=== PATIENT | male | born 1940 | race Two or more races ===

== ENCOUNTER 2016-10-25 07:20 | Outpatient (CLI) | payer MEDICARE, OTHER ==
[~2016-10-25 07:20] MED LIST: ASPI-605 PO; AZIT250T PO; CAPT25TA3 PO; CLOP75TA2 PO; EZET10TA13 PO; MONT10TA22 PO; PENT400T2 PO; SIMV20TA6 PO
[2016-10-25] MEDS ORDERED: REGADENOSON 0.4 MG/5 ML DISP.SYRIN IVP ONE (08:00)
[2016-10-25 10:04] LABS: BASOPHILS % (AUTO) 0.2 % (0.0-2.0); EOSINOPHILS # (AUTO) 0.1 /CMM (0.0-0.7); EOSINOPHILS % (AUTO) 1.4 % (0.0-6.0); HEMATOCRIT 35 % (39-51); HEMOGLOBIN 11.9 g/dL (13.5-17.5); LYMPHOCYTES # (AUTO) 1.8 /CMM (0.8-4.8); LYMPHOCYTES % (AUTO) 23.5 % (20.0-44.0); MEAN CORPUSCULAR HEMOGLOBIN 33 PG (26.0-33.0); MEAN CORPUSCULAR HGB CONC 34 g/dl (31.0-36.0); MEAN CORPUSCULAR VOLUME 98 fL (80-96); MONOCYTES # (AUTO) 0.4 /CMM (0.1-1.30); MONOCYTES % (AUTO) 5.1 % (2.0-12.0); NEUTROPHILS # (AUTO) 5.3 /CMM (1.8-8.9); NEUTROPHILS % (AUTO) 69.8 % (43.0-81.0); PLATELET COUNT (AUTO) 219 /CMM (150-450); RED BLOOD CELL COUNT(AUTO) 3.57 MIL/uL (4.5-6.0); WHITE BLOOD COUNT (AUTO) 7.6 K/uL (4.3-11.0)
[2016-10-25 10:28] LABS: ALBUMIN 3.8 g/dL (3.4-5.0); BILIRUBIN,TOTAL 0.4 mg/dL (0.2-1.0); CALCIUM, SERUM 9.1 mg/dL (8.5-10.1); MAGNESIUM 1.9 mg/dL (1.8-2.4); POTASSIUM 4.6 mmol/L (3.5-5.1); TOTAL PROTEIN, SERUM 8.8 g/dL (6.4-8.2)
[2016-10-25 10:36] LABS: THYROID STIMULATING HORMONE 2.704 uIU/mL (0.358-3.74)
== END 2016-10-25 23:59 | disposition home or self-care (01) ==
LOC: NM 07:20
PROVIDERS: ATTEND Internal Medicine Interventional Cardiology
DX: I25.10 Atherosclerotic heart disease of native coronary artery without angina pectoris (principal); I10 Essential (primary) hypertension; E78.5 Hyperlipidemia, unspecified
CPT/HCPCS: 36415; 78452; 80053; 80061; 82306; 83735; 84439; 84443; 85025; A9502; J2785

== ENCOUNTER 2017-05-15 15:37 | Outpatient (CLI) | payer MEDICARE, OTHER ==
[2017-05-15 16:34] LABS: ALANINE AMINOTRANSFERASE 29 U/L (12-78); ALBUMIN 3.9 g/dL (3.4-5.0); ALKALINE PHOSPHATASE 69 U/L (46-116); ASPARTATE AMINOTRANSFERASE 21 U/L (15-37); BILIRUBIN,TOTAL 0.4 mg/dL (0.2-1.0); CALCIUM, SERUM 9.2 mg/dL (8.5-10.1); CARBON DIOXIDE 32 mmol/L (21-32); CHLORIDE 103 mmol/L (98-107); GLUCOSE 127 mg/dL (74-106); POTASSIUM 4.5 mmol/L (3.5-5.1); SODIUM SERUM 141 mmol/L (136-145); TOTAL PROTEIN, SERUM 8.3 g/dL (6.4-8.2); UREA NITROGEN, BLOOD 22 mg/dL (7-18)
== END 2017-05-15 23:59 | disposition home or self-care (01) ==
LOC: LAB 15:37
PROVIDERS: ATTEND Internal Medicine Interventional Cardiology
DX: E78.5 Hyperlipidemia, unspecified (principal); R53.83 Other fatigue
CPT/HCPCS: 36415; 80053-TC; 83735-TC

== ENCOUNTER 2018-07-13 10:55 | Outpatient (CLI) | payer MEDICARE, OTHER ==
[~2018-07-13 10:55] MED LIST changes: +CLOP75TA15 PO; -CLOP75TA2 PO; +PENT400T12 PO; -PENT400T2 PO
== END 2018-07-13 23:59 | disposition home or self-care (01) ==
LOC: CT 10:55
PROVIDERS: ATTEND Internal Medicine Interventional Cardiology
DX: J47.9 Bronchiectasis, uncomplicated (principal); J98.4 Other disorders of lung; I51.7 Cardiomegaly; I25.10 Atherosclerotic heart disease of native coronary artery without angina pectoris; F17.200 Nicotine dependence, unspecified, uncomplicated; Z95.0 Presence of cardiac pacemaker
CPT/HCPCS: 71250-TC

== ENCOUNTER 2019-03-06 09:06 | Outpatient (CLI) | payer MEDICARE, OTHER ==
[~2019-03-06 09:06] MED LIST changes: -EZET10TA13 PO; +EZET10TA15 PO; -PENT400T12 PO; +PENT400T17 PO; +SIMV-46 PO; -SIMV20TA6 PO
== END 2019-03-06 23:59 | disposition home or self-care (01) ==
LOC: CT 09:06
PROVIDERS: ATTEND Internal Medicine Interventional Cardiology
DX: T50.991A Poisoning by other drugs, medicaments and biological substances, accidental (unintentional), initial encounter (principal); I11.9 Hypertensive heart disease without heart failure; M47.814 Spondylosis without myelopathy or radiculopathy, thoracic region; M19.011 Primary osteoarthritis, right shoulder; M19.012 Primary osteoarthritis, left shoulder; I70.0 Atherosclerosis of aorta; I25.10 Atherosclerotic heart disease of native coronary artery without angina pectoris; Y92.89 Other specified places as the place of occurrence of the external cause
CPT/HCPCS: 71250-TC

== ENCOUNTER 2019-10-26 22:57 | Inpatient (IN) | payer MEDICARE, OTHER ==
[~2019-10-26] VITALS: Ht 172.7 cm; Wt 81.2 kg
--- NOTE | 2019-10-26 23:18 | NUR ---
PATIENT CAME TO ER BED 10 C/O RAPID HEART RATE. PATIENT STATES THAT HE HAS BEEN HAVING FAST EHART RATE FOR THE PAST 3x DAYS WITH NO CHEST PAIN. AAOX4 NO SOB. BREATHING EVENLY AND UNLABORED ON ROOM AIR. CONNECTED TO UI DESIGNER.
[2019-10-26] MEDS ORDERED: AMIODARONE 150 MG/3 ML VIAL IV ONE ×3 (23:19→23:38)
--- NOTE | 2019-10-26 23:19 | NUR ---
BLOOD DRAWN AND SENT TO THE LAB.
[2019-10-26 23:24] LABS: BASOPHILS % (AUTO) 0.6 % (0.0-2.0); EOSINOPHILS % (AUTO) 1.5 % (0.0-6.0); HEMATOCRIT 33 % (39-51); HEMOGLOBIN 11.5 g/dL (13.5-17.5); LYMPHOCYTES % (AUTO) 29.8 % (20.0-44.0); MEAN CORPUSCULAR HGB CONC 34 g/dl (31.0-36.0); MEAN CORPUSCULAR VOLUME 101 fL (80-96); MONOCYTES # (AUTO) 0.6 /CMM (0.1-1.30); MONOCYTES % (AUTO) 8.4 % (2.0-12.0); NEUTROPHILS % (AUTO) 59.7 % (43.0-81.0); PLATELET COUNT (AUTO) 149 /CMM (150-450); RED BLOOD CELL COUNT(AUTO) 3.31 MIL/uL (4.5-6.0); WHITE BLOOD COUNT (AUTO) 6.6 K/uL (4.3-11.0)
[2019-10-26] MEDS ORDERED: DILTIAZEM HCL 25 MG IV IV ONE (23:30)
[2019-10-26 23:42] LABS: CALCIUM, SERUM 8.9 mg/dL (8.5-10.1); CREATININE 1.1 mg/dL (0.6-1.3); POTASSIUM 4.2 mmol/L (3.5-5.1)
[2019-10-26 23:48] LABS: ALBUMIN 3.8 g/dL (3.4-5.0); BILIRUBIN,DIRECT 0.1 mg/dL (0.0-0.2); BILIRUBIN,TOTAL 0.3 mg/dL (0.2-1.0)
[2019-10-27] VITALS (8 sets, daily range): BP systolic 107–151; BP diastolic 57–97
[2019-10-27] MEDS ORDERED: AMIODARONE 150 MG/3 ML VIAL IV ONE
[2019-10-27] MEDS ORDERED: FUROSEMIDE 20 MG/2 ML VIAL IV ONE (00:30)
[2019-10-27] MEDS ORDERED: RIVAROXABAN 10 MG TABLET PO SCH ×2 (00:30→17:00)
[2019-10-27] MEDS ORDERED: FUROSEMIDE 20 MG/2 ML VIAL ONE (00:33)
[2019-10-27] MEDS ORDERED: RIVAROXABAN 15 MG TABLET ONE (00:45)
--- NOTE | 2019-10-27 00:52 | NUR ---
XARELTO 15MG TABLET IS RECEIVED FROM FLOOR BECAUSE THERE IS NO XARELTO 15MG TABLET IS ABSENT FROM EMERGENCY DEPARTMENT. PATIENT IS MEDICATED WITH XARELTO 15MG PO PER MD'S ORDER.
--- NOTE | 2019-10-27 00:59 | NUR ---
REPORT GIVEN TO TAYLOR MUELLER FOR MOHIT.
[2019-10-27] MEDS ORDERED: HYDROCODONE/APAP 5/325MG 1 EACH TABLET PO PRN (01:00)
[2019-10-27] MEDS ORDERED: MAGNESIUM HYDROXIDE 30 ML UDC PO PRN (01:00)
[2019-10-27] MEDS ORDERED: MAG HYDROX/AL HYDROX/SIMETH 30 ML UDC PO PRN (01:00)
[2019-10-27] MEDS ORDERED: ONDANSETRON HCL/PF 4 MG/2 ML VIAL IVP PRN (01:00)
[2019-10-27] MEDS ORDERED: Z GUARD REMEDY 2 OZ OINT TP PRN (01:00)
[2019-10-27] MEDS ORDERED: RIVAROXABAN 15 MG TABLET PO ONE (01:00)
[2019-10-27] MEDS ORDERED: ACETAMINOPHEN 325 MG TABLET PO PRN (01:00)
[2019-10-27] MEDS ORDERED: ZOLPIDEM TARTRATE 5 MG TABLET PO PRN (01:00)
--- NOTE | 2019-10-27 01:06 | NUR ---
SHORT HAUL DRIVER NOTES RECEIVED PT FROM ER AWAKE A/OX4 GREEK/CZECH SPEAKING, VIA RFLAT LICK BUT ABLE TO AMBULATE ON RA SPO2@96%. TRANSFER FROM [facility] TO BED BY WALKING STABLE GAIT WITH NO ASSIST, V/S CHECKED WITH TEMP 97.5 BP 151/91 HR 142 RR 20, WITH R AC IV #20 WITH ONGOING AMIODARONE DRIP @ 1MG/MIN INFUSING WELL, HOOKED TO TELE MONITOR WITH CURRENT READING SINUS TACHY WITH AFIB RVR 140'S, HEAD TO TOE ASSESSMENT DONE SKIN ARE INTACT, INITIAL ADMISSION ASSESSMENT DONE,SAFELY MEASURE INITIATED BED ON LOWEST POSITION AND LOCKED SIDE RAILS UP X2 CALL LIGHT WITHIN REACH, WILL CONT TO MONITOR THE PT
--- NOTE | 2019-10-27 01:08 | NUR ---
PT TRANSFERED PER ACLS PROTOCOL
[2019-10-27] MEDS ORDERED: AMIODARONE IV ONE (01:30)
[2019-10-27] MEDS ORDERED: D5W IV ONE (01:30)
[2019-10-27] MEDS ORDERED: AMIODARONE IV SCH (04:50)
[2019-10-27] MEDS ORDERED: D5W IV SCH (04:50)
--- NOTE | 2019-10-27 06:41 | NUR ---
6:00amm rdeifh* Reduce pressure on bony prominences - Bed cradles - Heel, elbow protectors * Elevate affected extremity when appropriates
--- NOTE | 2019-10-27 06:42 | NUR ---
NURSE CLOSING NOTE PATIENT ALERT ORIENTATED VERBALLY RESPONSIVE NO SOB NOT ACUTE DISTRESS NOTED,ALL DUE MEDS GIVEN AD MD ORDERED HR AND BP IS ON NORMAL RANGE,KEPT CLEAN AND DRY ALL THE TIME,ALL NEEDS MET.
--- NOTE | 2019-10-27 07:15 | NUR ---
MARLENE RN OPENING NOTE Received patient awake in bed appears calm and relaxed on room air tolerating well no signs of distress. Patient is AO x4 no co pain or discomfort. Tele reading a-fib SR 80s. Has RAC #20 running amiodarone drip at 8.9ml/hr. Safety measures reinforced. Call light within reach. Bed locked and on lowest position. Will cont to monitor.
[2019-10-27 07:48] LABS: BASOPHILS % (AUTO) 0.2 % (0.0-2.0); EOSINOPHILS % (AUTO) 1.8 % (0.0-6.0); HEMATOCRIT 31 % (39-51); HEMOGLOBIN 10.5 g/dL (13.5-17.5); LYMPHOCYTES # (AUTO) 1.4 /CMM (0.8-4.8); MEAN CORPUSCULAR HGB CONC 34 g/dl (31.0-36.0); MEAN CORPUSCULAR VOLUME 100 fL (80-96); MONOCYTES # (AUTO) 0.6 /CMM (0.1-1.30); MONOCYTES % (AUTO) 8.9 % (2.0-12.0); NEUTROPHILS # (AUTO) 4.3 /CMM (1.8-8.9); NEUTROPHILS % (AUTO) 67.1 % (43.0-81.0); PLATELET COUNT (AUTO) 149 /CMM (150-450); RED BLOOD CELL COUNT(AUTO) 3.08 MIL/uL (4.5-6.0); WHITE BLOOD COUNT (AUTO) 6.5 K/uL (4.3-11.0)
[2019-10-27] MEDS ORDERED: AMIODARONE 450 MG in IV D5W 250 ML IV PRN ×3 (08:00→10:00)
[2019-10-27 08:07] LABS: CALCIUM, SERUM 8.3 mg/dL (8.5-10.1); MAGNESIUM 1.9 mg/dL (1.8-2.4); PHOSPHORUS 3.3 mg/dL (2.5-4.9); POTASSIUM 3.7 mmol/L (3.5-5.1)
[2019-10-27] MEDS: EZETIMIBE 10 MG TABLET PO SCH (08:08)
[2019-10-27] MEDS: LISINOPRIL (5MG) 5 MG TABLET PO SCH (08:17)
[2019-10-27] MEDS: MONTELUKAST SODIUM (10MG) 10 MG TABLET PO SCH ×2 (08:18→08:41)
[2019-10-27] MEDS: CLOPIDOGREL BISULFATE 75 MG TABLET PO SCH (08:18)
[2019-10-27] MEDS: ASPIRIN EC 81 MG TABLET.DR PO SCH (08:18)
[2019-10-27] MEDS ORDERED: PENTOXIFYLLINE 400 MG TABLET.SA PO SCH (09:00)
--- NOTE | 2019-10-27 09:13 | NUR ---
DISCUSSED WITH RAIL CAR REPAIR CARMAN DR. PILLAI PATIENT CAN BE OVERFLOW TO NONCOVID UNIT MARLENE WITH MARLENE NURSE AND ONCE OFF DRIP IN THE AFTERNOON CAN BE REGULAR TELE.DISCUSSED WITH GINNY FROM PHARMACY AND NURSING KATINA VARGAS AND CUTTER TENDER CHANDAN AND AGREED WITH THE PLAN OF CARE.
--- NOTE | 2019-10-27 09:15 | NUR ---
PATIENT TRANSFERRED TO CLEAN NONCOVID UNIT WITH MARLENE NURSE ANTWON VIA ACLS PROTOCOL,CHARGE NURSE CHAS NOTIFIED AND AWARE.
--- NOTE | 2019-10-27 09:20 | NUR ---
MARLENE OVERFLOW RN NOTE Patient was transferred to room 304-1 via hosp bed acls protocol, together withi belongings, chart and medication. Hooked up to telebox. No signs of distress. Tolerated well. Ordered new breakfast. All needs met. Will cont to monitor.
[2019-10-27] MEDS ORDERED: HYDROCODONE/APAP 10/325MG 1 EA TABLET PO PRN (11:00)
--- NOTE | 2019-10-27 11:07 | NUR ---
RN NOTE COVERING FOR AMI KAPOOR AT THE MOMENT. RECEIVED A CRITICAL LAB VALUE FOR TROPONIN OF 2.581, RELAYED THE INFORMATION TO DR. PILLAI AND CRICKET SZYMANSKI. NO NEW ORDERS RECEIVED AT THE MOMENT. WILL CONTINUE TO MONITOR PATIENT CLOSELY. NO DISTRESS NOTED. PATIENT IS NOT COMPLAINING OF CHEST PAIN AND NOT EXPERIENCING ANY SYMPTOMS. PATIENT SAFETY MAINTAINED, CALL LIGHT WITHIN REACH, WILL CONTINUE TO MONITOR CLOSELY.
[2019-10-27 11:13] LABS: THYROID STIMULATING HORMONE 2.622 uIU/mL (0.358-3.74)
[2019-10-27] MEDS: FUROSEMIDE 40 MG/4 ML VIAL IV SCH ×3 (11:14→18:06)
[2019-10-27] MEDS: POTASSIUM CHLORIDE 20 MEQ TAB.PRT.SR PO SCH ×3 (11:21→13:15)
--- NOTE | 2019-10-27 11:31 | NUR ---
nursing sup tanesha made aware dr. espinosa planning to do cardioversion in am if pt. still afib overnight.amiodrip extended overnight as protocol.nursing sup aknowledge and aware of trisha overflow.
[2019-10-27] MEDS ORDERED: FUROSEMIDE 40 MG TABLET PO PRN (12:00)
[2019-10-27] MEDS: ENOXAPARIN SODIUM 80 MG/0.8 ML DISP.SYRIN SQ SCH ×2 (12:21→21:09)
[2019-10-27] MEDS ORDERED: CYAN-51 PO (12:26)
[2019-10-27] MEDS ORDERED: TAMS-12 PO (12:26)
[2019-10-27] MEDS ORDERED: IRBE150T28 PO (12:26)
[2019-10-27] MEDS ORDERED: METO-357 PO (12:26)
[2019-10-27] MEDS ORDERED: FOLI0.8T PO (12:26)
[2019-10-27] MEDS ORDERED: RANO500T3 PO (12:26)
[2019-10-27] MEDS ORDERED: CHOL500052 PO (12:26)
[2019-10-27] MEDS ORDERED: FURO-144 PO (12:26)
[2019-10-27] MEDS ORDERED: ATOR40TA PO (12:26)
[2019-10-27] MEDS ORDERED: HYDR-4354 PO (12:26)
[2019-10-27 12:42] LABS: IRON, SERUM 69 ug/dl (50-175); TOTAL IRON BINDING CAPACITY 293 ug/dl (250-450)
--- NOTE | 2019-10-27 17:38 | NUR ---
MARLENE OVERFLOW RN NOTE Called Dr. Farrell informed patient still has uncontrolled a-fib. Per MD, give Amiodarone 400mg 1 time after the drip and he will decide in the morning if he wants to do cardioversion. NPO after midnight incase. Order noted and carried out. Informed Dr. Lilly and patient about the plan.
--- NOTE | 2019-10-27 18:32 | NUR ---
MARLENE OVERFLOW RN CLOSING NOTE Patient in bed awake no signs of distress on room air tolerating well O2 sat 97%. Patient is AO x4 able to communicate needs. Tele reading uncontrolled A-Fib 126 bpm. Patient used urinal throughout the day clear yellow urine output total is 1900ml. Reminded to take sips of water throughout the day. 3 doses of Furosemide 40mg given as ordered and replacement potassium (K Dur) tolerated well. Patient had an easy bowel movement in the bathroom reminded not to strain if difficult, patient understood. Standby assist provided no co of dizziness. Amiodarone drip to stop at 11:50pm MD ordered one time dose of Amiodarone 400mg PO after the drip and will decide tomorrow if he wants to push through with cardioversion. Order inputted in the system. Vital signs maintained within normal limits. No co pain or discomfort. No chest pain. Heart sounds within normal limits. Lung sounds within normal limits no crackles. Kept clean and comfortable. All due meds given. All needs met. Call light within reach. Bed locked and on lowest position. Siderails up x2. Will endorse to second shift supervisor nurse for jonathan.
--- NOTE | 2019-10-27 19:30 | NUR ---
RN NOTES, PATIENT LYING DOWN IN BED, AWAKE A/O X4 ABLE TO COMMUNICATE NEEDS AND CONCERNS, AT RA BREATHING EVEN AND UNLABORED, NO SOB/ACUTE DISTRESS NOTED, AT THIS TIME, UNCONTROLLED AFIB IN THE TELE MONITOR, ON AMIO DRIP AT THIS TIME, ORDERED, UNTIL 2350 TONIGHT, WITH ORDER TO GIVE PO AMIODARONE AT 0000 WILL GIVE ORDER, AMBULATORY WITH ASSISTANCE, IV ACCESS IN RIGHT AC PATENT AND INTACT, ALL NEEDS PROVIDED,SAFETY MEASURES IN PLACED, CALL LIGHT W/I REACH, BED S/R 2X UP, WILL CONTINUE TO MONITOR CLOSELY.
[2019-10-27] MEDS: LOSARTAN POTASSIUM 50 MG TABLET PO SCH (21:08)
[2019-10-27] MEDS: ATORVASTATIN 40 MG TABLET PO SCH (21:08)
[2019-10-27] MEDS ORDERED: SIMVASTATIN 20 MG TABLET PO SCH (22:00)
[2019-10-27] MEDS ORDERED: ATORVASTATIN 40 MG TABLET PO SCH (22:00)
[2019-10-27] MEDS ORDERED: IRBESARTAN (150MG) 150 MG TABLET PO SCH (22:00)
[2019-10-27] MEDS ORDERED: LOSARTAN POTASSIUM 50 MG TABLET PO SCH (22:00)
[2019-10-28] VITALS (10 sets, daily range): BP systolic 103–153; BP diastolic 51–98
[2019-10-28] MEDS ORDERED: AMIODARONE HCL 200 MG TABLET PO ONE
[2019-10-28 06:14] LABS: BASOPHILS % (AUTO) 0.5 % (0.0-2.0); EOSINOPHILS % (AUTO) 2.7 % (0.0-6.0); HEMATOCRIT 33 % (39-51); HEMOGLOBIN 11.4 g/dL (13.5-17.5); LYMPHOCYTES # (AUTO) 1.4 /CMM (0.8-4.8); LYMPHOCYTES % (AUTO) 20.9 % (20.0-44.0); MEAN CORPUSCULAR HGB CONC 34 g/dl (31.0-36.0); MEAN CORPUSCULAR VOLUME 99 fL (80-96); MONOCYTES # (AUTO) 0.6 /CMM (0.1-1.30); MONOCYTES % (AUTO) 8.4 % (2.0-12.0); NEUTROPHILS # (AUTO) 4.5 /CMM (1.8-8.9); NEUTROPHILS % (AUTO) 67.5 % (43.0-81.0); PLATELET COUNT (AUTO) 168 /CMM (150-450); RED BLOOD CELL COUNT(AUTO) 3.33 MIL/uL (4.5-6.0); WHITE BLOOD COUNT (AUTO) 6.6 K/uL (4.3-11.0)
--- NOTE | 2019-10-28 06:30 | NUR ---
RN NOTES, PATIENT IN BED ASLEEP, BUT EASILY AROUSABLE TO VERBAL STIMULI, AT RA BREATHING EVEN AND UNLABORED, NO SOB/ACUTE DISTRESS NOTED AT THIS TIME, ACCELERATED JUNCTIONAL IN THE TELE MONITOR, WITH OCCASIONAL PVCS, AFIB CONTROLLED WITH HR IN 80S SINCE LAST NIGHT AT 2200, S/P AMIO DRIP FINISHED AT 2350, AND AMIODARONE PO 400MG X1 AT MIDNIGHT, PATIENT DENIES CHEST PAIN, PALPITATIONS OR ANY DISCOMFORT, PIV ACCESS IN RIGHT AC PATENT AND INTACT, ALL SAFETY PRECAUTIONS IN PLACED, S/R OF BED UP, ALL LIGHT W/I REACH, WILL ENDORSE CONTINUITY OF CARE TO ONCOMING NURSE.
[2019-10-28 06:34] LABS: ALANINE AMINOTRANSFERASE 26 U/L (12-78); ALBUMIN 3.5 g/dL (3.4-5.0); ALKALINE PHOSPHATASE 72 U/L (46-116); ASPARTATE AMINOTRANSFERASE 31 U/L (15-37); BILIRUBIN,TOTAL 0.7 mg/dL (0.2-1.0); CALCIUM, SERUM 8.7 mg/dL (8.5-10.1); CARBON DIOXIDE 32 mmol/L (21-32); CHLORIDE 99 mmol/L (98-107); CREATININE 1.5 mg/dL (0.6-1.3); GLUCOSE 121 mg/dL (74-106); MAGNESIUM 1.7 mg/dL (1.8-2.4); PHOSPHORUS 4.1 mg/dL (2.5-4.9); POTASSIUM 3.7 mmol/L (3.5-5.1); SODIUM SERUM 137 mmol/L (136-145); TOTAL PROTEIN, SERUM 7.4 g/dL (6.4-8.2); UREA NITROGEN, BLOOD 25 mg/dL (7-18)
--- NOTE | 2019-10-28 07:30 | NUR ---
received pt. this am alert and oriented x4.no complaints offered.on tele monitor.dr. espinosa in to see pt. npo for possibe cardioversion.
--- NOTE | 2019-10-28 07:35 | NUR ---
RT EKG done. RN notified of results. Addendum: 10/28/19 at 0810 by KASI PERAZA RT Amended: Links added.
[2019-10-28] MEDS: Magnesium 1GM/D5W 100ML PREMIX 100 ML IV SCH ×2 (08:05→09:18)
[2019-10-28] MEDS: RANOLAZINE 500 MG TAB.ER.12H PO SCH (08:49)
[2019-10-28] MEDS: ENOXAPARIN SODIUM 80 MG/0.8 ML DISP.SYRIN SQ SCH (08:51)
[2019-10-28] MEDS ORDERED: RANOLAZINE 500 MG TAB.ER.12H PO SCH (09:00)
[2019-10-28] MEDS ORDERED: FOLIC ACID 1 MG TABLET PO SCH (09:00)
[2019-10-28] MEDS ORDERED: CHOLECALCIFEROL (VITAMIN D 3) 400 UNIT TABLET PO SCH (09:00)
[2019-10-28] MEDS ORDERED: ASPIRIN 81 MG TAB.CHEW PO SCH (09:00)
[2019-10-28] MEDS ORDERED: TAMSULOSIN 0.4 MG CAP.SR.24H PO SCH (09:00)
[2019-10-28] MEDS ORDERED: CYANOCOBALAMIN 100 MCG TABLET PO SCH (09:00)
[2019-10-28] MEDS: LISINOPRIL (5MG) 5 MG TABLET PO SCH (09:00)
[2019-10-28] MEDS ORDERED: ANESTHESIA TRAY IN PYXIS 1 EA TRAY MC ONE (09:11)
--- NOTE | 2019-10-28 09:25 | NUR ---
left via bed to icu for cardioversion.
--- NOTE | 2019-10-28 09:40 | NUR ---
RN INITIAL NOTES RECEIVED PT FROM [facility] VIA BED. PT A/OX4, ON 02 VIA NC AT 2LPM. IV LINE IN PLACE. PT CONNECTED TO MONITOR. VS STABLE. PREPPED FOR CARDIOVERSION. WILL CONTINUE TO MONITOR
--- NOTE | 2019-10-28 10:00 | NUR ---
mg replacement done.dr. triplett in to see pt.
--- NOTE | 2019-10-28 10:07 | NUR ---
RN NOTES DR PILLAI AND DR LARA AT BEDSIDE. PT NOTED SINUS RHYTHM ON MONITOR. NO CARDIOVERSION DONE. EKG DONE. PT A/OX4. ON 02 VIA NC. HOB ELEVATED. DENIES ANY PAIN. WILL TRANSFER BACK TO ROOM 304.
[2019-10-28] MEDS ORDERED: APIXABAN 5 MG TABLET PO SCH (10:30)
--- NOTE | 2019-10-28 10:35 | NUR ---
RN NOTES PT TRANSFERRED BACK TO 304. PT A/OX4. DENIES ANY PAIN. NO RESPIRATORY DISTRESS NOTED. HOB ELEVATED. REPORTGIVEN TO BHAKTI REED RN AT BEDSIDE. TOOK OVER PT'S CARE
--- NOTE | 2019-10-28 10:37 | NUR ---
returned to .cardioversion not done.
[2019-10-28] MEDS: AMIODARONE HCL 200 MG TABLET PO SCH ×3 (11:04→19:13)
[2019-10-28] MEDS: FOLIC ACID 1 MG TABLET PO SCH (11:05)
[2019-10-28] MEDS: MONTELUKAST SODIUM (10MG) 10 MG TABLET PO SCH (11:05)
[2019-10-28] MEDS: EZETIMIBE 10 MG TABLET PO SCH (11:05)
[2019-10-28] MEDS: CLOPIDOGREL BISULFATE 75 MG TABLET PO SCH (11:05)
[2019-10-28] MEDS: ASPIRIN EC 81 MG TABLET.DR PO SCH (11:05)
[2019-10-28] MEDS: TAMSULOSIN 0.4 MG CAP.SR.24H PO SCH (11:06)
[2019-10-28] MEDS ORDERED: APIX5TAB PO (11:16)
[2019-10-28] MEDS ORDERED: AMIO200T7 PO (11:16)
--- NOTE | 2019-10-28 12:30 | NUR ---
RT STAT EKG done. RN notified with results Addendum: 10/28/19 at 1409 by KASI PERAZA RT Amended: Links added.
--- NOTE | 2019-10-28 12:40 | NUR ---
INTEGRATION MANAGER REPORTS HEART RATE 150'S.RN IN TO RM. VS TAKEN.RT. ARM 116/60 MANUALLY,LT ARM 110/60.P0X 96%.ASYMTOMATIC.CHRG. RN INFORMED CHARGE NURSe ordered ekg.
--- NOTE | 2019-10-28 12:45 | NUR ---
ekg done and all info along with ekg texted to maliha lee as well as dr. espinosa.ok'd for discharge.
--- NOTE | 2019-10-28 13:46 | NUR ---
rn just received call from maliha steamblaster to hold discharge due to high heart rate.rn to inform pt's .
--- NOTE | 2019-10-28 14:10 | NUR ---
rn talking to pt's . aware dc held.heart rate still elevated,140-145.
--- NOTE | 2019-10-28 17:10 | NUR ---
heart rate at this time 114-119.
--- NOTE | 2019-10-28 19:35 | NUR ---
WOOD CUTTER OPENING NOTES PATIENT RECEIVED RESTING IN BED COMFORTABLY; A/OX4; BREATHING EVEN AND UNLABORED; ON SOB NOTED; PATIENT TOLERATING ROOM AIR WELL; TELE MONITOR READS AFIB - SINUS TACHY 115 BPM; R AC #20 INTACT AND PATENT; FLUSHING WELL; NO S/S OF REDNESS OR INFILTRATION NOTED; SAFETY PRECAUTIONS IMPLEMENTED; BED LOCKED IN LOW POSITION; SIDE RAILS X2; CALL LIGHT WITHIN REACH; WILL CONT PLAN OF CARE AND CONT TO MONITOR
[2019-10-28] MEDS: ATORVASTATIN 40 MG TABLET PO SCH (21:26)
[2019-10-28] MEDS: LOSARTAN POTASSIUM 50 MG TABLET PO SCH ×2 (21:28→21:38)
[2019-10-28] MEDS: APIXABAN 5 MG TABLET PO SCH (21:29)
--- NOTE | 2019-10-28 21:38 | NUR ---
POWERHOUSE OILER NOTES PATIENT REFUSED SCHEDULED LOSARTAN; BP 140/75; PATIENT WAS EDUCATED ON RISKS AND BENEFITS; PATIENT STILL REFUSED MED; WILL CONT TO MONITOR Addendum: 10/29/19 at 0016 by ALEXANDRA WOLFE RN 0000 VITALS CHECKED BP: 141/85 P: 103 PATIENT STILL REFUSING LOSARTAN, PATIENT WAS EDUCATED ON MEDICATION REGIME AND TREATMENT PLAN; RISKS AND BENEFITS RE-DISCUSSED AND REVIEWED WITH PATIENT; PATIENT STILL REFUSING BP MEDICATION; PATIENT STATED HE DOES NOT WANT HIS BP TO DROP OVER NIGHT; WILL INFORM DAY SHIFT AND CONT TO MONITOR
[2019-10-29] VITALS: BP 141/85
[2019-10-29 04:00] VITALS: BP 125/66
--- NOTE | 2019-10-29 06:20 | NUR ---
APPEALS REFEREE NOTES RT AT BEDSIDE PERFORMING 12 LEAD EKG
--- NOTE | 2019-10-29 06:26 | NUR ---
DRYWALL BOARDHANGER CLOSING NOTES PATIENT RESTING IN BED COMFORTABLY; A/OX4; BREATHING EVEN AND UNLABORED; PATIENT TOLERATING ROOM AIR WELL; NO SOB NOTED; NO DISTRESS NOTED; TELE MONITOR READS AFIB - SINUS TACHY 75BPM; PER SALESPERSON ART OBJECTS, TRYING TO RETURN TO NSR; R AC #20 SL INTACT AND PATENT; FLUSHING WELL; NO S/S OF REDNESS OR INFILTRATION NOTED; ALL NEEDS RENDERED; PATIENT ABLE TO MAKE NEEDS KNOWN; PATIENT AWARE OF POSSIBLE DISCHARGE; SAFETY PRECAUTIONS IMPLEMENTED; BED LOCKED IN LOW POSITION; SIDE RAILS X2; CALL LIGHT WITHIN REACH; WILL ENDORSE MOHIT TO ONCOMING SHIFT
[2019-10-29 06:55] LABS: BASOPHILS % (AUTO) 0.4 % (0.0-2.0); HEMATOCRIT 34 % (39-51); HEMOGLOBIN 11.6 g/dL (13.5-17.5); LYMPHOCYTES # (AUTO) 1.5 /CMM (0.8-4.8); LYMPHOCYTES % (AUTO) 22.9 % (20.0-44.0); MEAN CORPUSCULAR HGB CONC 34 g/dl (31.0-36.0); MEAN CORPUSCULAR VOLUME 100 fL (80-96); MONOCYTES # (AUTO) 0.6 /CMM (0.1-1.30); MONOCYTES % (AUTO) 9.1 % (2.0-12.0); NEUTROPHILS # (AUTO) 4.1 /CMM (1.8-8.9); NEUTROPHILS % (AUTO) 64.6 % (43.0-81.0); PLATELET COUNT (AUTO) 165 /CMM (150-450); RED BLOOD CELL COUNT(AUTO) 3.37 MIL/uL (4.5-6.0); WHITE BLOOD COUNT (AUTO) 6.4 K/uL (4.3-11.0)
[2019-10-29 07:16] LABS: CALCIUM, SERUM 8.6 mg/dL (8.5-10.1); CREATININE 1.3 mg/dL (0.6-1.3); MAGNESIUM 2.5 mg/dL (1.8-2.4); PHOSPHORUS 4.5 mg/dL (2.5-4.9); POTASSIUM 4.2 mmol/L (3.5-5.1)
--- NOTE | 2019-10-29 07:30 | NUR ---
AUTOMATIC EMBROIDERY MACHINE TENDER NOTES PT IN BED, AWAKE, ALERT AND ORIENTED, DENIES PAIN, RESPIRATIONS NORMAL, CALL LIGHT WITHIN REACH, NEEDS ATTENDED.
[2019-10-29 08:00] VITALS: BP 117/67
[2019-10-29] MEDS: MONTELUKAST SODIUM (10MG) 10 MG TABLET PO SCH ×2 (08:49→09:00)
[2019-10-29] MEDS: ASPIRIN EC 81 MG TABLET.DR PO SCH (08:49)
[2019-10-29] MEDS: AMIODARONE HCL 200 MG TABLET PO SCH ×2 (08:50→13:00)
[2019-10-29] MEDS: EZETIMIBE 10 MG TABLET PO SCH (08:51)
[2019-10-29] MEDS: TAMSULOSIN 0.4 MG CAP.SR.24H PO SCH (08:51)
[2019-10-29] MEDS: FOLIC ACID 1 MG TABLET PO SCH ×2 (08:51→09:00)
[2019-10-29] MEDS: APIXABAN 5 MG TABLET PO SCH (08:52)
[2019-10-29] MEDS: CLOPIDOGREL BISULFATE 75 MG TABLET PO SCH ×2 (08:52→09:00)
[2019-10-29] MEDS: RANOLAZINE 500 MG TAB.ER.12H PO SCH (09:00)
[2019-10-29] MEDS: LISINOPRIL (5MG) 5 MG TABLET PO SCH (09:00)
[2019-10-29 12:00] VITALS: BP 110/65
[2019-10-29 13:00] VITALS: BP 115/67
--- NOTE | 2019-10-29 14:05 | NUR ---
REMNANTS CUTTER NOTES PT AWAKE, ALERT AND ORIENTED, SITTING IN BED, NO COMPLAINT OF PAIN OR ANY DISCOMFORT, SEEN BY DR. PAULINO, DISCHARGE ORDER GIVEN, DISCHARGE AND MEDICATION INSTRUCTIONS PROVIDED TO PT, VERBALIZED UNDERSTANDING, PT'S NEW PRESCRIPTION SENT ELECTRONICALLY TO PT'S PHARMACY OF CHOICE, BELONGINGS ACCOUNTED FOR, PT TO FOLLOW UP WITH DR. PILLAI, PT VERBALIZED UNDERSTANDING, ASSISTED TO HOSPITAL LOBBY VIA WHEELCHAIR, PICKED UP BY DAUGHTER JAVID, LEFT VIA PRIVATE CAR IN STABLE CONDITION.
== END 2019-10-29 14:00 | disposition home or self-care (01) | DRG 280 ==
LOC: ER 23:01 → MEDSG1 10-27 00:34 → UNDOADMIN 10-27 00:34 → TELE-TD 10-27 00:37 → TELE 10-27 09:09 → ICU 10-28 09:39 → TELE 10-28 10:26
PROVIDERS: ADMIT Hospitalist; ATTEND Student in an Organized Health Care Education/Training Program
DX: I48.91 Unspecified atrial fibrillation (principal); I21.A1 Myocardial infarction type 2; I50.23 Acute on chronic systolic (congestive) heart failure; N17.0 Acute kidney failure with tubular necrosis; I11.0 Hypertensive heart disease with heart failure; I25.10 Atherosclerotic heart disease of native coronary artery without angina pectoris; I73.9 Peripheral vascular disease, unspecified; Z79.01 Long term (current) use of anticoagulants; Z87.891 Personal history of nicotine dependence; Z95.1 Presence of aortocoronary bypass graft; Z95.810 Presence of automatic (implantable) cardiac defibrillator; T50.2X5A Adverse effect of carbonic-anhydrase inhibitors, benzothiadiazides and other diuretics, initial encounter; Y92.89 Other specified places as the place of occurrence of the external cause; Z79.82 Long term (current) use of aspirin; Z82.49 Family history of ischemic heart disease and other diseases of the circulatory system
CPT/HCPCS: 36415; 71045-TC; 80048-TC; 80053-TC; 80061-TC; 80076-TC; 82728-TC; 83540-TC; 83735-TC; 83880; 84100-TC; 84439-TC; 84443-TC; 84484-TC; 85025-TC; 85730-TC; 87081-TC; 93307-TC; 93970-TC; G0378; J0282; J1650; J1940; J3475; J7050; J7060

== ENCOUNTER 2020-03-20 10:31 | Outpatient (CLI) | payer MEDICARE, OTHER ==
[~2020-03-20 10:31] MED LIST changes: +AMIO200T7 PO; +APIX5TAB PO; -ASPI-605 PO; +ATOR40TA PO; -AZIT250T PO; -CAPT25TA3 PO; +CHOL500052 PO; -CLOP75TA15 PO; +CYAN-51 PO; -EZET10TA15 PO; +FOLI0.8T PO; +FURO-144 PO; +HYDR-4354 PO; +IRBE150T28 PO; +METO-357 PO; -MONT10TA22 PO; -PENT400T17 PO; +RANO500T3 PO; -SIMV-46 PO; +TAMS-12 PO
[2020-03-20 11:36] LABS: BASOPHILS % (AUTO) 0.3 % (0.0-2.0); EOSINOPHILS % (AUTO) 1.4 % (0.0-6.0); HEMATOCRIT 33 % (39-51); HEMOGLOBIN 11.1 g/dL (13.5-17.5); LYMPHOCYTES # (AUTO) 1.5 /CMM (0.8-4.8); MEAN CORPUSCULAR HGB CONC 34 g/dl (31.0-36.0); MEAN CORPUSCULAR VOLUME 101 fL (80-96); MONOCYTES # (AUTO) 0.5 /CMM (0.1-1.30); MONOCYTES % (AUTO) 7.7 % (2.0-12.0); NEUTROPHILS % (AUTO) 65.6 % (43.0-81.0); PLATELET COUNT (AUTO) 146 /CMM (150-450); RED BLOOD CELL COUNT(AUTO) 3.23 MIL/uL (4.5-6.0); WHITE BLOOD COUNT (AUTO) 6.1 K/uL (4.3-11.0)
[2020-03-20 12:00] LABS: ALBUMIN 3.9 g/dL (3.4-5.0); BILIRUBIN,TOTAL 0.5 mg/dL (0.2-1.0); CALCIUM, SERUM 8.7 mg/dL (8.5-10.1); CREATININE 1.2 mg/dL (0.6-1.3); POTASSIUM 3.8 mmol/L (3.5-5.1); TOTAL PROTEIN, SERUM 8.1 g/dL (6.4-8.2)
== END 2020-03-20 23:59 | disposition home or self-care (01) ==
LOC: LAB 10:31
PROVIDERS: ATTEND Internal Medicine Interventional Cardiology
DX: I10 Essential (primary) hypertension (principal); I25.10 Atherosclerotic heart disease of native coronary artery without angina pectoris; I73.9 Peripheral vascular disease, unspecified
CPT/HCPCS: 36415; 80053-TC; 85025-TC

== ENCOUNTER 2020-04-13 05:35 | Day surgery (SDC) | payer MEDICARE, OTHER ==
[2020-04-13] VITALS (14 sets, daily range): BP systolic 119–175; BP diastolic 53–108
[~2020-04-13] VITALS: Ht 170.2 cm; Wt 83.9 kg
[2020-04-13 06:04] LABS: BASOPHILS % (AUTO) 0.2 % (0.0-2.0); EOSINOPHILS % (AUTO) 2.1 % (0.0-6.0); HEMATOCRIT 34 % (39-51); HEMOGLOBIN 11.6 g/dL (13.5-17.5); LYMPHOCYTES # (AUTO) 2.1 /CMM (0.8-4.8); LYMPHOCYTES % (AUTO) 28.7 % (20.0-44.0); MEAN CORPUSCULAR HGB CONC 34 g/dl (31.0-36.0); MEAN CORPUSCULAR VOLUME 101 fL (80-96); MONOCYTES # (AUTO) 0.6 /CMM (0.1-1.30); NEUTROPHILS # (AUTO) 4.4 /CMM (1.8-8.9); PLATELET COUNT (AUTO) 158 /CMM (150-450); RED BLOOD CELL COUNT(AUTO) 3.39 MIL/uL (4.5-6.0); WHITE BLOOD COUNT (AUTO) 7.2 K/uL (4.3-11.0)
[2020-04-13 06:12] LABS: CALCIUM, SERUM 9.3 mg/dL (8.5-10.1); CARBON DIOXIDE 26 mmol/L (21-32); CHLORIDE 103 mmol/L (98-107); CREATININE 1.2 mg/dL (0.6-1.3); GLUCOSE 119 mg/dL (74-106); POTASSIUM 3.9 mmol/L (3.5-5.1); SODIUM SERUM 141 mmol/L (136-145); UREA NITROGEN, BLOOD 22 mg/dL (7-18)
[2020-04-13] MEDS ORDERED: IV SET PRIMARY PUMP SET 1 EA INFUS.SET MC ONE (06:13)
[2020-04-13] MEDS ORDERED: IV NS 0.9% 1,000 ML ONE (06:13)
[2020-04-13] MEDS ORDERED: FENTANYL PF 100MCG/2ML AMPUL ONE (06:20)
[2020-04-13] MEDS ORDERED: MIDAZOLAM HCL 2 MG/2ML VIAL ONE (06:20)
[2020-04-13] MEDS ORDERED: IODIXANOL 150 ML IV ONE ×3 (06:32→08:12)
[2020-04-13] MEDS ORDERED: LIDOCAINE HCL/MPF 1% 30 ML VIAL IJ ONE (06:41)
--- NOTE | 2020-04-13 09:45 | NUR ---
CAREER CENTER ADVISOR NOTES RECEIVED PATIENT AOX4 , NOT IN ACUTE DISTRESS , DENIES SOB AND DISCOMFORT AT THIS TIME , SPO2 OF 95% VA RA , V PACING 60 AT BEDSIDE MONITOR , L AC # 18 PATENT AND INTACT , SKIN INTACT , PERIPHERAL PULSES PALPABLE , BLE WARM TO TOUCH , CAPILLARY REFILL BELOW 3 SECONDS , RIGHT FEMORAL CARDIAC CATH SITE CLEAN DRY AND INTACT WITH NO SIGNS OF BLEEDING , POST PROCEDURE ORDERS CARRIED OUT , INSTRUCTED PT TO BE ON BEDREST X2 HOURS , MAY ELEVATED HOB 10 DEGREES PROGRESS TO 30 DEGREES AFTER 1 HOUR , WILL CONTINUE TO MONITOR
[2020-04-13] MEDS ORDERED: IV NS 0.9% 1,000 ML IV ONE (10:30)
--- NOTE | 2020-04-13 13:41 | NUR ---
COLLECTION ADMINISTRATOR NOTES PATIENT STABLE PRIOR TO DC , DENIES SOB AND DISCOMFORT , NO ACTIVE BLEEDING NOTED AT RIGHT FEMORAL CATH INSERTION SITE , DRESSING INTACT AND DRY, BLE WARM TO TOUCH , CAPILLARY REFILL BELOW 3 SECONDS , NO NUMBNESS AND TINGLING SENSATION , DISTAL PULSES PALPABLE , VS STABLE , AFEBRILE , SPO2 OF 98% VIA RA , PIV REMOVED , SKIN IS INTACT , DISCHARGE INSTRUCTION AND PAPER WORKS EXPLAINED AND PT VERBALIZED UNDERSTANDING , WHEELED PT TO THE LOBBY , BELONGING LIST CHECKED , ACCOMPANIED BY .
== END 2020-04-13 12:00 | disposition home or self-care (01) ==
LOC: CATHLAB 05:35 → ICU 12:36 → UNDOADMIN 12:36 → UNDODISIN 13:55
PROVIDERS: ATTEND Internal Medicine
DX: I25.10 Atherosclerotic heart disease of native coronary artery without angina pectoris (principal); I13.0 Hypertensive heart and chronic kidney disease with heart failure and stage 1 through stage 4 chronic kidney disease, or unspecified chronic kidney disease; N18.9 Chronic kidney disease, unspecified; I48.91 Unspecified atrial fibrillation; E78.5 Hyperlipidemia, unspecified
CPT/HCPCS: 36415; 80048; 85025; 85610; 85730; 87426; 93458; 99152; 99153; C1887; C1894; C9803; J1644 ×2; J2250; J3010; J3490; Q9967 ×3; 75625; G0378; G0500

== ENCOUNTER 2021-03-17 08:00 | Inpatient (IN) | payer MEDICARE, OTHER ==
[~2021-03-17] VITALS: Ht 165.1 cm; Wt 75.8 kg
[~2021-03-17 08:00] MED LIST changes: -FOLI0.8T PO; +FOLI0.8T3 PO
--- NOTE | 2021-03-17 08:10 | NUR ---
TO ER BED 8, C/O SOB SENT BY PMD, AAOX3, BREATHING EVEN AND NON LABORED O2 SAT 93% ON 2LPM, NO RESPIRATORY DISTRESS, CONNECTED TO MONITOR AND CHANGED INTO A GOWN
--- NOTE | 2021-03-17 08:20 | NUR ---
COVID ANTIGEN SWAB DONE AND SENT TO LAB
--- NOTE | 2021-03-17 08:21 | NUR ---
X-RAY TECH AT THE BEDSIDE
[2021-03-17 08:23] LABS: BASOPHILS # (AUTO) 0.2 K/uL (0.0-0.2); BASOPHILS % (AUTO) 3.1 % (0.0-2.0); EOSINOPHILS % (AUTO) 1.9 % (0.0-6.0); HEMATOCRIT 35 % (39-51); HEMOGLOBIN 11.6 g/dL (13.5-17.5); LYMPHOCYTES # (AUTO) 1.6 K/uL (0.8-4.8); LYMPHOCYTES % (AUTO) 25.1 % (20.0-44.0); MEAN CORPUSCULAR HGB CONC 33 g/dl (31.0-36.0); MEAN CORPUSCULAR VOLUME 102 fL (80-96); MONOCYTES # (AUTO) 0.5 K/uL (0.1-1.30); MONOCYTES % (AUTO) 7.4 % (2.0-12.0); NEUTROPHILS # (AUTO) 3.9 K/uL (1.8-8.9); NEUTROPHILS % (AUTO) 62.5 % (43.0-81.0); PLATELET COUNT (AUTO) 180 K/uL (150-450); RED BLOOD CELL COUNT(AUTO) 3.45 MIL/uL (4.5-6.0); WHITE BLOOD COUNT (AUTO) 6.3 K/uL (4.3-11.0)
[2021-03-17 08:35] LABS: CALCIUM, SERUM 9.2 mg/dL (8.5-10.1); CARBON DIOXIDE 29 mmol/L (21-32); CHLORIDE 104 mmol/L (98-107); CREATININE 1.2 mg/dL (0.6-1.3); GLUCOSE 146 mg/dL (74-106); POTASSIUM 3.7 mmol/L (3.5-5.1); SODIUM SERUM 142 mmol/L (136-145); UREA NITROGEN, BLOOD 26 mg/dL (7-18)
[2021-03-17] MEDS ORDERED: CLOP75TA15 PO (08:39)
[2021-03-17] MEDS ORDERED: DUTA0.5C37 PO (08:39)
[2021-03-17] MEDS ORDERED: DRON400T6 PO (08:39)
[2021-03-17] MEDS ORDERED: APIX5TAB PO (08:39)
[2021-03-17 08:47] LABS: ALANINE AMINOTRANSFERASE 26 U/L (12-78); ALBUMIN 3.6 g/dL (3.4-5.0); ALKALINE PHOSPHATASE 114 U/L (46-116); ASPARTATE AMINOTRANSFERASE 20 U/L (15-37); BILIRUBIN,DIRECT 0.2 mg/dL (0.0-0.2); BILIRUBIN,TOTAL 0.5 mg/dL (0.2-1.0); TOTAL PROTEIN, SERUM 9.2 g/dL (6.4-8.2)
[2021-03-17] MEDS ORDERED: FUROSEMIDE 40 MG/4 ML VIAL ONE (09:03)
[2021-03-17] MEDS ORDERED: IOHEXOL-350 100 ML VIAL IV ONE (09:11)
[2021-03-17] MEDS ORDERED: IV NS 0.9% 250 ML IV ONE (09:13)
--- NOTE | 2021-03-17 09:22 | NUR ---
COVID PCR SWAB DONE AND SENT TO THE LAB
[2021-03-17] MEDS ORDERED: FUROSEMIDE 40 MG/4 ML VIAL IV ONE (09:30)
--- NOTE | 2021-03-17 09:33 | NUR ---
DR PILLAI AT BEDSIDE
--- NOTE | 2021-03-17 10:06 | NUR ---
NURSING SUP GAVE BED 104.
--- NOTE | 2021-03-17 10:16 | NUR ---
REPORT GIVEN TO YUNIEL MUELLER FOR MOHIT
[2021-03-17] MEDS ORDERED: SACU1TAB7 PO (10:19)
--- NOTE | 2021-03-17 10:55 | NUR ---
THE PATIENT IS TRANSFERED TO ROOM 104 IN STABLE CONDITION AND PER ACLS POLICY.
[2021-03-17] MEDS: FUROSEMIDE 40 MG/4 ML VIAL IV SCH ×3 (10:58→18:09)
--- NOTE | 2021-03-17 11:00 | NUR ---
RN NOTE RECEIVED REPORT FROM JUVENTINO IN ER. AWAITING PATIENT'S ARRIVAL.
[2021-03-17 11:43] LABS: ALBUMIN 3.5 g/dL (3.4-5.0); BILIRUBIN,DIRECT 0.2 mg/dL (0.0-0.2); BILIRUBIN,TOTAL 0.4 mg/dL (0.2-1.0)
--- NOTE | 2021-03-17 12:00 | NUR ---
RN NOTE NOTIFIED DR. WALL FOR ADMITTING ORDERS.
--- NOTE | 2021-03-17 12:53 | NUR ---
ARTURO WALL NOTIFIED REGARDING ADMISSION AND ALSO NEED TO RECONCILE MEDS.PER ARTURO WALL HE WILL PUT ORDERS.
[2021-03-17 16:00] VITALS: BP 130/53
--- NOTE | 2021-03-17 18:00 | NUR ---
RN NOTE NOTIFIED DR. WALL FOR ADMITTING ORDERS.
--- NOTE | 2021-03-17 18:28 | NUR ---
ARTURO WALL PAGED TO RECONCILE PT. HOME MEDS. AWAITS RESPONSE.
--- NOTE | 2021-03-17 18:44 | NUR ---
ARTURO WALL RETURNED CALL HE WILL RECONCILE THE MEDS .
[2021-03-17] MEDS ORDERED: ACETAMINOPHEN 325 MG TABLET PO PRN (19:00)
[2021-03-17] MEDS ORDERED: Z GUARD REMEDY 2 OZ OINT TP PRN (19:00)
[2021-03-17] MEDS ORDERED: ONDANSETRON HCL/PF 4 MG/2 ML VIAL IVP PRN (19:00)
--- NOTE | 2021-03-17 19:30 | NUR ---
RN NOTE RECEIVED PATIENT IN BED. A/OX3, ON OXYGEN 3L/MIN VIA NASAL CANNULA. RESPIRATIONS ARE EVEN AND UNLABORED. NO S/S SOB NOTED. NO C/O PAIN AT THIS TIME. IN NO APPARENT DISTRESS. TELE MONITOR READS SINUS RHYTHM HR 64, PATIENT DOES HAVE A PACEMAKER. IV ACCESS IN RAC#20 PATENT AN SALINE LOCKED, REINFORCED DRESSING WITH TAPE. BED IS LOW AND LOCKED, HOB ELEVATED IN SEMI FOWLERS, SIDE RIALS UP X2, CALL LIGHT WITHIN REACH.
[2021-03-17 20:00] VITALS: BP 142/50
[2021-03-17] MEDS: RANOLAZINE 500 MG TAB.ER.12H PO SCH (21:11)
[2021-03-17] MEDS: ATORVASTATIN 40 MG TABLET PO SCH (21:11)
[2021-03-18] VITALS: BP 133/55
[2021-03-18 04:00] VITALS: BP 138/50
[2021-03-18 06:12] LABS: BASOPHILS % (AUTO) 0.3 % (0.0-2.0); EOSINOPHILS % (AUTO) 3.2 % (0.0-6.0); HEMATOCRIT 31 % (39-51); HEMOGLOBIN 10.6 g/dL (13.5-17.5); LYMPHOCYTES # (AUTO) 0.6 K/uL (0.8-4.8); LYMPHOCYTES % (AUTO) 11.1 % (20.0-44.0); MEAN CORPUSCULAR HGB CONC 34 g/dl (31.0-36.0); MEAN CORPUSCULAR VOLUME 100 fL (80-96); MONOCYTES # (AUTO) 0.5 K/uL (0.1-1.30); MONOCYTES % (AUTO) 9.3 % (2.0-12.0); NEUTROPHILS # (AUTO) 4.1 K/uL (1.8-8.9); NEUTROPHILS % (AUTO) 76.1 % (43.0-81.0); PLATELET COUNT (AUTO) 166 K/uL (150-450); RED BLOOD CELL COUNT(AUTO) 3.12 MIL/uL (4.5-6.0); WHITE BLOOD COUNT (AUTO) 5.3 K/uL (4.3-11.0)
--- NOTE | 2021-03-18 06:34 | NUR ---
RN NOTE PATIENT RESTING IN BED. A/OX3, REMAINS ON OXYGEN 3L/MIN VIA NASAL CANNULA.NO RESP DISTRESS. NO DISTRESS. TELE MONITOR READS SINUS RHYTHM. IV IN RAC#20. BED REMAINS LOW AND LOCKED, HOB ELEVATED IN SEMI FOWLERS, SIDE RIALS UP X2, CALL LIGHT WITHIN REACH. WILL ENDORSE TO ONCOMING SHIFT.
[2021-03-18 07:15] LABS: ALANINE AMINOTRANSFERASE 24 U/L (12-78); ALBUMIN 3.2 g/dL (3.4-5.0); ALKALINE PHOSPHATASE 105 U/L (46-116); ASPARTATE AMINOTRANSFERASE 20 U/L (15-37); BILIRUBIN,TOTAL 0.8 mg/dL (0.2-1.0); CALCIUM, SERUM 8.4 mg/dL (8.5-10.1); CARBON DIOXIDE 33 mmol/L (21-32); CHLORIDE 99 mmol/L (98-107); CREATININE 1.4 mg/dL (0.6-1.3); GLUCOSE 118 mg/dL (74-106); MAGNESIUM 1.9 mg/dL (1.8-2.4); PHOSPHORUS 4.7 mg/dL (2.5-4.9); POTASSIUM 3.4 mmol/L (3.5-5.1); SODIUM SERUM 139 mmol/L (136-145); TOTAL PROTEIN, SERUM 8.1 g/dL (6.4-8.2); UREA NITROGEN, BLOOD 28 mg/dL (7-18)
[2021-03-18 07:17] LABS: CHOLESTEROL 217 mg/dL (<200); HDL CHOLESTEROL 38 mg/dL (40-60); LDL 157 mg/dL (0-99); TRIGLYCERIDES 96 mg/dL (30-150)
--- NOTE | 2021-03-18 07:30 | NUR ---
NUCLEAR OPERATOR OPENING NOTE PT SEMIFOWLER'S IN BED BREATHING NC 3L, SPO2 91%, NO S/S OF RESP DISTRESS OR SOB, PT DENIES SOB. PT A/Ox3/3, DENIES PAIN AT THIS MOMENT. PT HAS RAC #20 FLUSHED AND PATENT, NO S/S OF INFECTION/INFILTRATION. ALL PT SAFETY PRECAUTIONS IN PLACE, WILL CONT TO MONITOR
[2021-03-18 08:00] VITALS: BP 131/54
[2021-03-18] MEDS: CLOPIDOGREL BISULFATE 75 MG TABLET PO SCH (08:42)
[2021-03-18] MEDS: DUTASTERIDE (0.5 MG) 0.5 MG CAPSULE PO SCH (08:42)
[2021-03-18] MEDS: VALSARTAN 80 MG TABLET PO SCH ×2 (08:42→09:00)
[2021-03-18] MEDS: DRONEDARONE HYDROCHLORIDE 400 MG TABLET PO SCH ×2 (08:42→17:08)
[2021-03-18] MEDS: RANOLAZINE 500 MG TAB.ER.12H PO SCH ×2 (08:42→21:03)
[2021-03-18] MEDS: METOPROLOL SUCCINATE 50 MG TAB.SR.24H PO SCH (08:43)
[2021-03-18] MEDS: TAMSULOSIN 0.4 MG CAP.SR.24H PO SCH (08:43)
[2021-03-18] MEDS: APIXABAN 5 MG TABLET PO SCH ×2 (08:47→17:08)
--- NOTE | 2021-03-18 09:00 | NUR ---
RN NOTE PT REFUSED ENTRESTO MED, BP 131/54. PT WANTED TO REFUSE OTHER MEDS, PT EDUCATION PROVIDED FOR EACH MED, APPROX 25MIN SPENT WITH PT REGARDING SUPERVISING LIBRARIAN
[2021-03-18] MEDS: POTASSIUM CHLORIDE 20 MEQ TAB.PRT.SR PO SCH ×3 (09:07→11:11)
[2021-03-18] MEDS: FUROSEMIDE 40 MG/4 ML VIAL IV SCH ×4 (09:14→17:08)
[2021-03-18 09:57] LABS: IRON, SERUM 85 ug/dl (50-175); TOTAL IRON BINDING CAPACITY 275 ug/dl (250-450)
[2021-03-18 10:12] LABS: FERRITIN 220 ng/mL (8-388)
[2021-03-18 12:00] VITALS: BP 116/63
[2021-03-18 16:00] VITALS: BP 113/50
--- NOTE | 2021-03-18 19:03 | NUR ---
COPS CLOSING NOTE NO CHANGES TO PT DURING SHIFT. PT STABLE ON NC 3L, NO RESP DISTRESS OR SOB. ALL PT SAFETY PRECAUTIONS IN PLACE, WILL ENDORSE MOHIT TO ONCOMING NURSE
[2021-03-18 20:00] VITALS: BP 120/50
--- NOTE | 2021-03-18 20:00 | NUR ---
RN NOTE RECEIVED PATIENT IN BED. A/OX3, ON OXYGEN 3L/MIN VIA NASAL CANNULA. RESPIRATIONS ARE EVEN AND UNLABORED. NO S/S SOB NOTED. NO C/O PAIN AT THIS TIME. IN NO APPARENT DISTRESS. IV ACCESS IN RAC#20 PATENT AN SALINE LOCKED. PROVIDED PATIENT WITH DENTURE CUP, PLACED PATIENT TREASURER SAVINGS BANK LID, AT BEDSIDE. BED IS LOW AND LOCKED, HOB ELEVATED IN SEMI FOWLERS, SIDE RIALS UP X2, CALL LIGHT WITHIN REACH.
[2021-03-18] MEDS: ATORVASTATIN 40 MG TABLET PO SCH (21:03)
[2021-03-19] VITALS: BP 112/50
[2021-03-19 04:00] VITALS: BP 110/54
--- NOTE | 2021-03-19 06:25 | NUR ---
RN NOTE PATIENT RESTING IN BED. A/OX3, REMAINS ON OXYGEN 3L/MIN VIA NASAL CANNULA. NO RESP DISTRESS, NO PAIN, NO DISTRESS. RAC#20 PATENT AN SALINE LOCKED. BED IS LOW AND LOCKED, HOB ELEVATED IN SEMI FOWLERS, SIDE RIALS UP X2, CALL LIGHT WITHIN REACH. WILL ENDORSE TO ONCOMING SHIFT.
[2021-03-19 06:55] LABS: BILIRUBIN,TOTAL 0.8 mg/dL (0.2-1.0); CALCIUM, SERUM 8.3 mg/dL (8.5-10.1); CREATININE 1.3 mg/dL (0.6-1.3); PHOSPHORUS 4.1 mg/dL (2.5-4.9); POTASSIUM 4.2 mmol/L (3.5-5.1); TOTAL PROTEIN, SERUM 7.9 g/dL (6.4-8.2)
[2021-03-19 07:12] LABS: BASOPHILS % (AUTO) 0.2 % (0.0-2.0); EOSINOPHILS % (AUTO) 4.1 % (0.0-6.0); HEMATOCRIT 30 % (39-51); HEMOGLOBIN 10.2 g/dL (13.5-17.5); LYMPHOCYTES # (AUTO) 1.3 K/uL (0.8-4.8); LYMPHOCYTES % (AUTO) 22.1 % (20.0-44.0); MEAN CORPUSCULAR HGB CONC 34 g/dl (31.0-36.0); MEAN CORPUSCULAR VOLUME 100 fL (80-96); MONOCYTES # (AUTO) 0.7 K/uL (0.1-1.30); MONOCYTES % (AUTO) 11.9 % (2.0-12.0); NEUTROPHILS # (AUTO) 3.7 K/uL (1.8-8.9); NEUTROPHILS % (AUTO) 61.7 % (43.0-81.0); PLATELET COUNT (AUTO) 180 K/uL (150-450); RED BLOOD CELL COUNT(AUTO) 2.98 MIL/uL (4.5-6.0)
[2021-03-19 08:00] VITALS: BP 115/59
[2021-03-19 08:07] LABS: *SPE A/G RATIO 0.7 (0.7-1.7); *SPE ALPHA-1-GLOBULIN 0.3 g/dL (0.0-0.4); *SPE ALPHA-2-GLOBULIN 1.2 g/dL (0.4-1.0); *SPE BETA GLOBULIN 1.2 g/dL (0.7-1.3); *SPE M-SPIKE 1.2 g/dL (Not Observed)
[2021-03-19] MEDS: RANOLAZINE 500 MG TAB.ER.12H PO SCH (08:23)
[2021-03-19] MEDS: TAMSULOSIN 0.4 MG CAP.SR.24H PO SCH (08:25)
[2021-03-19] MEDS: DRONEDARONE HYDROCHLORIDE 400 MG TABLET PO SCH (08:41)
[2021-03-19] MEDS: APIXABAN 5 MG TABLET PO SCH (08:47)
[2021-03-19] MEDS: CLOPIDOGREL BISULFATE 75 MG TABLET PO SCH (08:48)
[2021-03-19] MEDS: METOPROLOL SUCCINATE 50 MG TAB.SR.24H PO SCH (08:49)
[2021-03-19] MEDS: DUTASTERIDE (0.5 MG) 0.5 MG CAPSULE PO SCH (08:59)
--- NOTE | 2021-03-19 10:12 | NUR ---
Nurse Note Patient Spo2 on room air is less than 87% at rest. Patient currently on 3L of oxygen.
[2021-03-19 12:00] VITALS: BP 132/64
--- NOTE | 2021-03-19 12:06 | NUR ---
Patient Spo2 on room air is 86% at rest. Patient currently on 3L of oxygen.
[2021-03-19 16:32] VITALS: BP 125/58
--- NOTE | 2021-03-19 16:46 | NUR ---
NURSE NOTE. PATIENT WAS DISCHARGED HOME. OXYGEN SUPPLIES WAS DELIVERED AT HOME. DISCHARGED INSTRUCTION WAS PROVIDE. PATIENT IN STABLE CONDITION AT THE TIME OF DISCHARGE. PICKED UP BY FAMILY MEMBER.
== END 2021-03-19 16:43 | disposition home or self-care (01) | DRG 291 ==
LOC: ER 08:04 → TELE1 10:24 → MEDSG1 03-19 03:34
PROVIDERS: ADMIT Nurse Practitioner Acute Care; ATTEND Nurse Practitioner Acute Care
DX: I11.0 Hypertensive heart disease with heart failure (principal); I50.31 Acute diastolic (congestive) heart failure; N17.0 Acute kidney failure with tubular necrosis; J96.21 Acute and chronic respiratory failure with hypoxia; I27.82 Chronic pulmonary embolism; Z95.1 Presence of aortocoronary bypass graft; Z95.5 Presence of coronary angioplasty implant and graft; Z95.810 Presence of automatic (implantable) cardiac defibrillator; Z79.01 Long term (current) use of anticoagulants; I25.10 Atherosclerotic heart disease of native coronary artery without angina pectoris; Z79.02 Long term (current) use of antithrombotics/antiplatelets; Z79.899 Other long term (current) drug therapy; E78.5 Hyperlipidemia, unspecified; I71.2 Thoracic aortic aneurysm, without rupture; J84.112 Idiopathic pulmonary fibrosis; Z20.822 Contact with and (suspected) exposure to COVID-19; D53.9 Nutritional anemia, unspecified; R59.0 Localized enlarged lymph nodes; N40.0 Benign prostatic hyperplasia without lower urinary tract symptoms; E88.09 Other disorders of plasma-protein metabolism, not elsewhere classified; E87.6 Hypokalemia; Z82.49 Family history of ischemic heart disease and other diseases of the circulatory system; Z87.891 Personal history of nicotine dependence
CPT/HCPCS: 36415; 71045-TC; 80048-TC; 80053-TC; 80061-TC; 80076-TC; 82728-TC; 83540-TC; 83735-TC; 83880; 84100-TC; 84155; 84165; 84484-TC; 85025-TC; 85378-TC; 85730-TC; 87081-TC; 93307-TC; G0378; J1940; J7050; Q9967; U0003

== ENCOUNTER 2021-10-11 14:20 | Outpatient (CLI) | payer MEDICARE, MEDICAID ==
[~2021-10-11 14:20] MED LIST changes: -AMIO200T7 PO; -CHOL500052 PO; +CLOP75TA15 PO; -CYAN-51 PO; +DRON400T6 PO; +DUTA0.5C37 PO; -FOLI0.8T3 PO; -FURO-144 PO; -HYDR-4354 PO; +SACU1TAB7 PO
[2021-10-11 15:11] LABS: BASOPHILS % (AUTO) 0.4 % (0.0-2.0); EOSINOPHILS % (AUTO) 3.7 % (0.0-6.0); HEMATOCRIT 27 % (39-51); HEMOGLOBIN 9.2 g/dL (13.5-17.5); LYMPHOCYTES # (AUTO) 1.4 K/uL (0.8-4.8); LYMPHOCYTES % (AUTO) 24.9 % (20.0-44.0); MEAN CORPUSCULAR HGB CONC 34 g/dl (31.0-36.0); MEAN CORPUSCULAR VOLUME 102 fL (80-96); MONOCYTES # (AUTO) 0.5 K/uL (0.1-1.30); MONOCYTES % (AUTO) 8.9 % (2.0-12.0); NEUTROPHILS # (AUTO) 3.5 K/uL (1.8-8.9); NEUTROPHILS % (AUTO) 62.1 % (43.0-81.0); PLATELET COUNT (AUTO) 129 K/uL (150-450); RED BLOOD CELL COUNT(AUTO) 2.61 MIL/uL (4.5-6.0); WHITE BLOOD COUNT (AUTO) 5.7 K/uL (4.3-11.0)
[2021-10-11 15:26] LABS: ALANINE AMINOTRANSFERASE 16 U/L (12-78); ALBUMIN 3.5 g/dL (3.4-5.0); ALKALINE PHOSPHATASE 95 U/L (46-116); ASPARTATE AMINOTRANSFERASE 18 U/L (15-37); BILIRUBIN,TOTAL 0.6 mg/dL (0.2-1.0); CALCIUM, SERUM 8.7 mg/dL (8.5-10.1); CARBON DIOXIDE 33 mmol/L (21-32); CHLORIDE 101 mmol/L (98-107); CREATININE 1.3 mg/dL (0.6-1.3); GLUCOSE 116 mg/dL (74-106); POTASSIUM 3.8 mmol/L (3.5-5.1); SODIUM SERUM 142 mmol/L (136-145); TOTAL PROTEIN, SERUM 7.9 g/dL (6.4-8.2); UREA NITROGEN, BLOOD 39 mg/dL (7-18)
== END 2021-10-11 23:59 | disposition home or self-care (01) ==
LOC: LAB 14:20
PROVIDERS: ATTEND Internal Medicine Interventional Cardiology
DX: I10 Essential (primary) hypertension (principal); E11.9 Type 2 diabetes mellitus without complications; M35.3 Polymyalgia rheumatica
CPT/HCPCS: 36415; 80053-TC; 85025-TC; 85652-TC